=== PATIENT | male | born 1980 | race Caucasian/White ===

== ENCOUNTER 2024-01-31 08:51 | Emergency (ER) | payer OTHER ==
[~2024-01-31] VITALS: Ht 170.2 cm; Wt 90.7 kg
[2024-01-31] MEDS ORDERED: NS 1,000 ML IV SCH (08:55)
[2024-01-31 09:04] LABS: BASOPHILS ABSOLUTE AUTO 0.07 K/mm3 (0.00-0.23); BASOPHILS PERCENT AUTO 1 % (0-2); EOSINOPHILS ABSOLUTE AUTO 0.21 K/mm3 (0.00-0.68); EOSINOPHILS PERCENT AUTO 3 % (0-6); Hematocrit 36.8 % (37.0-53.0); Hemoglobin 12.9 g/dL (13.5-17.5); IMMATURE GRAN ABSOLUTE AUTO 0.02 K/mm3 (0.00-0.10); IMMATURE GRAN PERCENT AUTO 0 % (0-1); LYMPHOCYTES ABSOLUTE AUTO 0.82 K/mm3 (0.84-5.20); LYMPHOCYTES PERCENT AUTO 13 % (21-46); MONOCYTES ABSOLUTE AUTO 0.53 K/mm3 (0.16-1.47); MONOCYTES PERCENT AUTO 8 % (4-13); Mean Corpuscular HGB 35.1 pg (26.0-34.0); Mean Corpuscular HGB Conc 35.1 g/dL (31.5-36.5); Mean Corpuscular Volume 100 fL (80-100); Mean Platelet Volume 12.3 fL (9.1-12.4); NEUTROPHILS ABSOLUTE AUTO 4.67 K/mm3 (1.96-9.15); NEUTROPHILS PERCENT AUTO 74 % (41-73); Platelet Count 143 K/mm3 (150-400); RDW Coefficient Variation 14.7 % (11.7-14.2); RDW Standard Deviation 54.6 fL (35.1-46.3); Red Blood Cell Count 3.67 M/mm3 (4.30-5.90); White Blood Cell Count 6.32 K/mm3 (4.00-11.30)
[2024-01-31] MEDS ORDERED: NICOTINE LOZENGE2 MG MM ×2 (09:51)
[2024-01-31] MEDS ORDERED: MELATONIN5 M1 PO ×2 (09:51)
[2024-01-31] MEDS ORDERED: METO25 PO ×2 (09:51)
[2024-01-31] MEDS ORDERED: GABA300 PO ×2 (09:51)
[2024-01-31] MEDS ORDERED: B-1100 M2 PO ×2 (09:52)
[2024-01-31] MEDS ORDERED: CHLO25 PO ×2 (09:52)
[2024-01-31 09:55] LABS: Albumin, Blood 2.8 g/dL (3.4-5.0); Albumin/Globulin Ratio 0.6 (0.8-1.8); Bilirubin, Total 3.1 mg/dL (0.1-1.0); Bun/Creatinine Ratio 17.3 (12.0-20.0); Calcium, Blood 9.2 mg/dL (8.5-10.1); Creatinine, Blood 0.58 mg/dL (0.60-1.20); Globulin, Blood 4.5 g/dL (2.2-4.0); Potassium, Blood 4.3 mmol/L (3.5-5.5); Total Protein, Blood 7.3 g/dL (6.4-8.2)
[2024-01-31] MEDS ORDERED: ChlordiazePOXIDE 25 MG Cap PO ONE ×2 (10:35→12:20)
[2024-01-31] MEDS ORDERED: CloNIDine 0.1 MG Tab PO ONE (11:40)
== END 2024-01-31 13:00 ==
LOC: ER 08:51
PROVIDERS: Emergency Medicine
DX: F10.231 Alcohol dependence with withdrawal delirium (principal); E86.0 Dehydration; I10 Essential (primary) hypertension; Z79.899 Other long term (current) drug therapy
CPT/HCPCS: 80053; 85025; 93005; 93010; 96360; 99285-25; A9270; J7030

== ENCOUNTER 2024-01-31 16:10 | Inpatient (IN) | payer OTHER ==
[~2024-01-31] VITALS: Ht 177.8 cm; Wt 88.1 kg
[~2024-01-31 16:10] MED LIST: B-1100 M2 PO; CHLO25 PO; GABA300 PO; MELATONIN5 M1 PO; METO25 PO; NICOTINE LOZENGE2 MG MM
[2024-01-31] MEDS ORDERED: ChlordiazePOXIDE 25 MG Cap PO PRN ×2 (18:30)
[2024-01-31] MEDS ORDERED: Metoclopramide HCl 5MG / ML 2ML Vial IV PRN (18:30)
[2024-01-31] MEDS ORDERED: Lactated Ringer's 1,000 ML IV SCH (18:30)
[2024-01-31] MEDS ORDERED: LORazepam 2 MG/ML 1ML Injection IV PRN ×2 (18:30)
[2024-01-31] MEDS ORDERED: Ondansetron HCl 2 MG / ML 2ML Vial IV PRN (18:35)
[2024-01-31] MEDS ORDERED: Folic Acid 1 MG in NS 50 ML IV SCH (19:00)
[2024-01-31] MEDS ORDERED: Thiamine HCl 100 MG in NS 50 ML IV SCH (19:00)
[2024-01-31 19:25] LABS: Albumin, Blood 2.9 g/dL (3.4-5.0); Albumin/Globulin Ratio 0.6 (0.8-1.8); Bilirubin, Total 2.8 mg/dL (0.1-1.0); Calcium, Blood 9.2 mg/dL (8.5-10.1); Creatinine, Blood 0.6 mg/dL (0.60-1.20); Globulin, Blood 4.7 g/dL (2.2-4.0); Potassium, Blood 4.5 mmol/L (3.5-5.5); Total Protein, Blood 7.6 g/dL (6.4-8.2)
[2024-01-31] MEDS ORDERED: LORazepam 2 MG/ML 1ML Injection ONE ×2 (21:06→22:17)
[2024-01-31 22:51] VITALS: BP 129/86
[2024-01-31] MEDS ORDERED: Lactulose 20 GM/30 ML UDC PO ONE (23:00)
--- NOTE | 2024-01-31 23:56 | NUR ---
TRANSFER TO PCU PT ARRIVED TO PCU AT APPROXIMATELY 2045. PT SLID TO HOSPITAL BED. VSS, AFEBRILE. PT WAS SLEEPING UPON ARRIVAL, BUT SHORTLY AFTER BECAME RESTLESS AND WAS HALLUCINATING. CIWA OF 24 UPON ARRIVAL. MEDICATED WITH ATIVAN PER EMAR. PT NOW SLEEPING, BREATHING EVEN AND UNLABORED.
[2024-02-01 03:08] VITALS: BP 130/83
[2024-02-01 03:49] LABS: U Amphetamine Screen Not Detected; U Barbituate Screen Not Detected; U Benzodiazapine Screen DETECTED; U Buprenorphine Screen Not Detected; U Cannabinoids Screen Not Detected; U Cocaine Screen Not Detected; U Methadone Screen Not Detected; U Methamphetamine Screen Not Detected; U Opiates Screen Not Detected; U Oxycodone Screen Not Detected; U Phencyclidine Screen Not Detected
[2024-02-01 04:36] LABS: Albumin, Blood 2.9 g/dL (3.4-5.0); Albumin/Globulin Ratio 0.7 (0.8-1.8); Bun/Creatinine Ratio 18.5 (12.0-20.0); Calcium, Blood 8.8 mg/dL (8.5-10.1); Creatinine, Blood 0.54 mg/dL (0.60-1.20); Globulin, Blood 4.4 g/dL (2.2-4.0); Magnesium, Blood 1.6 mg/dL (1.6-2.4); Potassium, Blood 3.6 mmol/L (3.5-5.5); Total Protein, Blood 7.3 g/dL (6.4-8.2)
--- NOTE | 2024-02-01 05:03 | NUR ---
SHIFT SUMMARY PT A&O X2-3, UNABLE TO MAKE NEEDS KNOWN APPROPRIATELY. NO ACUTE CHANGES SINCE ASSUMPTION OF CARE. PT IS IMPULSIVE, BED ALARM ON, SITTER IN ROOM. CIWA SCORE BETWEEN 6-24, MEDICATED PER EMAR, ALTHOUGH PT IS CURRENTLY MAXED ON LIBRIUM, ATIVAN HAS SEEMED TO KEEP SYMPTOMS UNDER CONTROL THIS SHIFT. LR RUNNING AT 125 ML/HR. LUNGS CLEAR, HR IS SR 70'S. PT DENIES SOB OR CP. PT IS QUITE WEAK AND SLOW TO FOLLOW COMMANDS, USES URINAL IN BED WITH ASSISTANCE. PT IS NOW SLEEPING, CALL LIGHT WITHIN REACH, BED IN LOWEST POSITION, BREATHING EVEN AND UNLABORED.
[2024-02-01 08:09] VITALS: BP 154/97
[2024-02-01 08:11] LABS: International Normalized Ratio 1.28; Prothrombin Time Results 13.4 Sec (9.7-11.5)
[2024-02-01] MEDS ORDERED: Enoxaparin 40 MG/0.4 ML SYR SC SCH (09:00)
[2024-02-01] MEDS ORDERED: Lactulose 20 GM/30 ML UDC PO SCH (09:00)
[2024-02-01] MEDS ORDERED: Multivitamins 1 Tab PO SCH (09:00)
[2024-02-01 12:41] VITALS: BP 140/87
[2024-02-01 16:58] VITALS: BP 148/112
--- NOTE | 2024-02-01 18:20 | NUR ---
SHIFT SUMMARY: PT ALERT, ORIENTED TO SELF, MONTH/YEAR, SITUATION. CIWAs SCORED AND PT MEDICATED PRN, NO HALLUCINATIONS NOTED THIS SHIFT BUT PT NOTED TO HAVE TREMORS, ANXIETY, AGITATION. PT HAS BEEN COOPERATIVE W/CARE AND ABLE TO MAKE NEEDS KNOWN, 1:1 OBSERVATION DC'd. PT DENIES SOB AND CP, O2 SATS >93% ON RA, SR ON MONITOR W/RATE 70s-80s. PT W/3 LOOSE STOOLS THIS SHIFT, CONTINENT OF BOWEL AND BLADDER. FLUIDS INFUSING PER ORDERS. AT THIS TIME, PT IS RESTING IN BEDSIDE RECLINER W/CALL LIGHT IN REACH.
[2024-02-01 21:15] VITALS: BP 157/116
--- NOTE | 2024-02-01 22:49 | NUR ---
UPDATE PT BEGAN EXPERIENCING SEVERE HALLUCINATIONS AND BEGAN TO RIP HIS IV TUBING, UNDRESS, AND GRAB HIS BELONGINGS. HE THEN STARTED RUNNING DOWN THE DC EXPRESSING SEVERE HALLUCINATIONS AND THAT HE WAS FEARFUL. SECURITY WAS CALLED, , AND NURSE RULING MACHINE SET UP OPERATOR NOTIFIED PROMPTLY. PT THEN LEFT CAMPUS FOLLOWED BY SECURITY. PT WAS FOUND NEAR THE SOUTH ENTRANCE IN THE PARKING LOT. PT VOLUNTARILY ESCORTED BACK TO U 9 BY SECURITY. PT ARRIVED BACK TO U AT APPROXIMATELY 22:30. NEW IV INSERTED BY ELECTROLYTIC DE SCALER, PT CLEANED UP. HE HAS A SKIN TEAR TO HIS LEFT FOOT AND LEFT FOREARM. CLEANED AND DRESSED. PT MEDICATED PER EMAR. PT IS NOW RESTING IN BED, SITTER IN ROOM.
[2024-02-01 23:03] VITALS: BP 144/88
[2024-02-02] VITALS (55 sets, daily range): BP systolic 99–172; BP diastolic 62–116
--- NOTE | 2024-02-02 01:23 | NUR ---
REPORT GIVEN TO ERMA MADDEN AND PT TRANSFERRED TO ICU 3.
[2024-02-02] MEDS ORDERED: NS 250 ML IV PRN (02:25)
[2024-02-02 03:35] LABS: BASOPHILS ABSOLUTE AUTO 0.06 K/mm3 (0.00-0.23); BASOPHILS PERCENT AUTO 1 % (0-2); EOSINOPHILS ABSOLUTE AUTO 0.13 K/mm3 (0.00-0.68); EOSINOPHILS PERCENT AUTO 2 % (0-6); Hematocrit 37.6 % (37.0-53.0); Hemoglobin 13.6 g/dL (13.5-17.5); IMMATURE GRAN ABSOLUTE AUTO 0.01 K/mm3 (0.00-0.10); IMMATURE GRAN PERCENT AUTO 0 % (0-1); LYMPHOCYTES ABSOLUTE AUTO 0.89 K/mm3 (0.84-5.20); LYMPHOCYTES PERCENT AUTO 14 % (21-46); MONOCYTES ABSOLUTE AUTO 0.84 K/mm3 (0.16-1.47); MONOCYTES PERCENT AUTO 13 % (4-13); Mean Corpuscular HGB 35.8 pg (26.0-34.0); Mean Corpuscular HGB Conc 36.2 g/dL (31.5-36.5); Mean Corpuscular Volume 99 fL (80-100); Mean Platelet Volume 11.9 fL (9.1-12.4); NEUTROPHILS ABSOLUTE AUTO 4.47 K/mm3 (1.96-9.15); NEUTROPHILS PERCENT AUTO 70 % (41-73); Platelet Count 91 K/mm3 (150-400); RDW Coefficient Variation 14.3 % (11.7-14.2); RDW Standard Deviation 51.8 fL (35.1-46.3)
[2024-02-02 03:54] LABS: Albumin/Globulin Ratio 0.7 (0.8-1.8); Bilirubin, Total 2.7 mg/dL (0.1-1.0); Bun/Creatinine Ratio 10.4 (12.0-20.0); Calcium, Blood 8.7 mg/dL (8.5-10.1); Creatinine, Blood 0.58 mg/dL (0.60-1.20); Globulin, Blood 4.6 g/dL (2.2-4.0); Potassium, Blood 3.5 mmol/L (3.5-5.5); Total Protein, Blood 7.6 g/dL (6.4-8.2)
[2024-02-02] MEDS ORDERED: OLANZapine 10 MG Vial IM ONE (03:55)
--- NOTE | 2024-02-02 03:58 | NUR ---
ARRIVAL TO ICU PT A/O X 3. STATES HES IN THE ICU IN [facility]. STATES ITS January. FOLLOWING DIRECTIONS BUT IMPULSIVE AND PULLING AT LINES. 1:1 SITTER AT BEDSIDE. [address] D/T PREVIOUS ELOPEMENT. LABILE, COOPERITIVE AT TIMES AND OTHERS HALLUCINATING, THREATENING TO HIT STAFF AND RAISING FISTS. MINIMALLY RE-DIRECTABLE. VSS. SR RATE 70-90'S. USES URINAL IN BED TO VOID. CALL LIGHT IN REACH.
--- NOTE | 2024-02-02 08:57 | NUR ---
ASSUMED CARE BEDSIDE REPORT FROM [place] RITCHIE AT 0700. PT APPEARS TO BE SLEEPING IN BED. PRECEDEX GTT INFUSING, TITRATING DOWN. RASS -3. PT RESPONSES TO VERBAL STIMULI, DOES NOT FOLLOW DIRECTIONS. SPEECH GARBLED AND INCOHERANT. UNABLE TO TAKE PO MEDS SAFELY. LUNGS COARSE c WHEEZES THROUGHOUT. OCCASIONAL NON PRODUCTIVE COUGH. SR, RATE 80'S. HTN NOTED. LR GTT INFUSING. PIV X 3. SITTER AT BEDSIDE FOR SAFETY. WILL CONTINUE PLAN OF CARE.
--- NOTE | 2024-02-02 17:14 | NUR ---
SHIFT SUMMARY NO ACUTE CHANGES THIS SHIFT. REMAINS ON PRECEDEX GTT. ATTEMPTED TO TITRATE DOWN SEVERAL TIMES THIS SHIFT. PT BECAME AGITATED, RESTLESS AND DIFFICULT TO REDIRECT. CIWA RANGE FROM 8-19, PRN GIVEN. PT A&OX 1 ONLY. OCCASIONALLY FOLLOWS SIMPLE DIRECTIONS. MILVIA. SITTER FOR SAFETY. LUNGS COARSE THROUGHOUT c WHEEZES. O2 VIA NC AT 5L. PT UNABLE TO TAKE PO MEDS D/T ASPIRATION RISK. ABD DISTENDED, SOFT, NON TENDER, BT X 4. ATTENDS IN PLACE. PT HAS REQUESTED TO USE URINAL TWICE, TWO INCONTINENT VOIDS. ORAL CARE PERFORMED SEVERAL TIMES THIS SHIFT. WILL CONTINUE PLAN OF CARE UNTIL REPORT TO ONCOMING NURSE.
--- NOTE | 2024-02-02 19:00 | NUR ---
ASSUMPTION OF CARE BEDSIDE SHIFT REPORT RECEIVED FROM DAYSHIFT RN. PT RESTING IN BED, RESPONDS TO VERBAL STIMULI. PT ORIENTED TO SELF, MUMBLED SPEECH THAT IS HARD TO UNDERSTAND. PT MAKING NONSENSICLE STATEMENTS. PT FOLLOWS DIRECTION WHEN PROMPTED SUCH SQUEEZING HANDS AND WIGGLING TOES. HR 80-90'S SINUS, MAP >65. AUDIBLE COURSE/WET SOUNDING RESPIRATIONS HEARD FROM PT DOOR. LUNG SOUNDS COARSE THROUGHOUT ALL HOLLY. PT HAS WEAK COUGH, RESPIRATORY RATE IN THE 30-40'S. PT ON 5LPM VIA NC OXYGEN SATURATION >90%. ABDOMEN ROUND, BOWEL TONES HYPOACTIVE. PT USES URINAL WITH ASSISTANCE TO VOID, ATTENDS IN PLACE. PIV IN PLACE TO RFA, RIGHT WRIST AND LAC. PRECEDEX INFUSING AT 0.7MCG/KG/HR. LR INFUSING AT 150MLS/HR. BED IN LOWEST POSITION, 1:1 SITTER AT THE PT BEDSIDE. CALL LIGHT WIHTIN REACH, CARE CONTINUES.
--- NOTE | 2024-02-02 20:14 | NUR ---
PT UPDATE PT BECAME VERY AGGITATED, ATTEMPTING TO CRAWL OUT OF BED, YELLING OUT, NOT REDIRECTABLE. OXYGEN SATURATION DROPPED TO 84% WHILE ON NC. PT REPOSITIONED AND BOOSTED IN BED, INSTRUCTED PT TO TAKE DEEP BREATHS THROUGH HIS NOSE. CALL PLACED TO HOSPITALIST, CHEST XRAY ORDERED AND COMPLETED, LR PLACED ON HOLD, PT PLACED ON 5LPM O2 VIA HIGH FLOW NC QUICKLY TITRATED UP TO 7LPM. PT RESTING COMFORTABLY IN BED AT THIS TIME, OXYGEN SATURATION 95%. 1:1 SITTER REMAINS AT THE BEDSIDE. CARE CONTINUES.
[2024-02-02 20:22] LABS: Bun/Creatinine Ratio 14.5 (12.0-20.0); Calcium, Blood 8.7 mg/dL (8.5-10.1); Creatinine, Blood 0.41 mg/dL (0.60-1.20)
[2024-02-02 20:44] LABS: Base Excess Venous 0.8 mmol/L; Bicarbonate Venous 25.4 mmol/L (24.0-30.0); PCO2 Venous 34.5 mmHg (38-42); pH Blood Venous 7.46 (7.34-7.37)
[2024-02-02] MEDS ORDERED: Furosemide 10 MG/ML 4ML Vial IV ONE (20:50)
--- NOTE | 2024-02-02 20:55 | NUR ---
PT UPDATE RT AND HOSPITALIST TO BEDSIDE. PT WITHOUT GAG WHEN SUCTIONED BY RT. PT WAKING UP WITH AGGRESIVE STIMULATION. PRECEDEX PLACED ON STANDBY AT THIS TIME. CARE CONTINUES.
[2024-02-02 21:26] LABS: Source, Urine Foley catheter
[2024-02-02 21:29] LABS: Appearance, Urine Clear (Clear); Bilirubin, Urine Neg (Neg); Blood, Urine Neg (Neg); Color, Urine Yellow (P-Yellow); Glucose Qualitative, Urine Neg (Neg); Ketones, Urine Neg (Neg); Leukocyte Esterase, Urine Neg (Neg); Nitrite, Urine Neg (Neg); Protein, Urine Neg (Neg); Specific Gravity, Urine 1.015 (1.003-1.022); Urobilinogen, Urine NORM (Normal)
[2024-02-03] VITALS (41 sets, daily range): BP systolic 95–153; BP diastolic 54–128
[2024-02-03 03:36] LABS: BASOPHILS ABSOLUTE AUTO 0.09 K/mm3 (0.00-0.23); BASOPHILS PERCENT AUTO 1 % (0-2); EOSINOPHILS ABSOLUTE AUTO 0.09 K/mm3 (0.00-0.68); EOSINOPHILS PERCENT AUTO 1 % (0-6); Hematocrit 38.6 % (37.0-53.0); Hemoglobin 13.5 g/dL (13.5-17.5); IMMATURE GRAN ABSOLUTE AUTO 0.03 K/mm3 (0.00-0.10); IMMATURE GRAN PERCENT AUTO 0 % (0-1); LYMPHOCYTES ABSOLUTE AUTO 1.07 K/mm3 (0.84-5.20); LYMPHOCYTES PERCENT AUTO 16 % (21-46); MONOCYTES PERCENT AUTO 13 % (4-13); Mean Corpuscular HGB 35.2 pg (26.0-34.0); Mean Corpuscular Volume 101 fL (80-100); Mean Platelet Volume 11.8 fL (9.1-12.4); NEUTROPHILS ABSOLUTE AUTO 4.66 K/mm3 (1.96-9.15); NEUTROPHILS PERCENT AUTO 68 % (41-73); Platelet Count 98 K/mm3 (150-400); RDW Coefficient Variation 14.2 % (11.7-14.2); RDW Standard Deviation 52.5 fL (35.1-46.3); Red Blood Cell Count 3.83 M/mm3 (4.30-5.90); White Blood Cell Count 6.84 K/mm3 (4.00-11.30)
[2024-02-03 03:55] LABS: Albumin, Blood 2.7 g/dL (3.4-5.0); Albumin/Globulin Ratio 0.6 (0.8-1.8); Bun/Creatinine Ratio 17.9 (12.0-20.0); Calcium, Blood 8.6 mg/dL (8.5-10.1); Creatinine, Blood 0.56 mg/dL (0.60-1.20); Globulin, Blood 4.5 g/dL (2.2-4.0); Potassium, Blood 3.7 mmol/L (3.5-5.5); Total Protein, Blood 7.2 g/dL (6.4-8.2)
[2024-02-03] MEDS ORDERED: Furosemide 10 MG/ML 4ML Vial IV ONE (04:55)
--- NOTE | 2024-02-03 06:10 | NUR ---
SHIFT SUMMARY PT CONTINUES TO REST IN BED, SLEEPING BUT AROUSABLE. PT ANSWERS MOST QUESTIONS APPROPRIATELY AND FOLLOWS DIRECTION WHEN PROMPTED. PT MAKES NONSENSICLE STATEMENTS, ABLE TO STATE NAME , AND OCCASIONALLY TOWN. 1:1 SITTER AT THE BEDSIDE, PRECEDEX REMAINS ON SB. HR 70-90'S SINUS, MAP >65. LUNG SOUNDS COARSE THROUGHOUT, GREATLY IMPROVED FROM BEGINNING OF SHIFT. PT IS ON 10L HFNC, OXYGEN SATURATION >90%. ABDOMEN ROUND, BOWEL TONES HYPOACTIVE. TEMP GARCIA IN PLACE PATENT DRAINING TO GRAVITY. PIV IN PLACE TO RIGHT WRIST AND LAC SL. BED IN LOWEST POSITION, CALL LIGHT WITHIN REACH, CARE CONTINUES.
[2024-02-03] MEDS ORDERED: Melatonin 1 MG Tablet PO PRN (07:40)
[2024-02-03] MEDS ORDERED: Nicotine 14 MG PATCH TOP PRN (07:40)
--- NOTE | 2024-02-03 08:15 | NUR ---
SHIFT ASSESSMENT BEDSIDE RECEIVED FROM [facility] NURSE. PT RESTING COMFORTABLY IN BED. AWAKENS EASILY TO VERBAL STIMULI. A&OX3, UNSURE OF DATE BUT RECALLS EVENTS LEADING UP TO THIS ADMIT. CALM AND COOPERATIVE WITH CARE. CIWA <6. REMAINS OFF OF PRECEDEX, HAS NOT RECEIVED ANY PRN MEDS FOR ETOH W/D. INITIALLY ON HIFLOW NC @ 8-10LPM, TITRATED DOWN TO 2LPM. NO S/S OF RESP DISTRESS. TOLERATING SMALL SIPS OF WATER, WILL SLOWLY ADVANCE DIET. GARCIA CATH REMAINS IN PLACE, DRAINING LIGHT PINK URINE. SITTER REMAINS OUTSIDE OF ROOM.
[2024-02-03] MEDS ORDERED: Ampicillin Sod/Sulbactam Sod 3 GM in NS 100 ML IV SCH (12:00)
[2024-02-03] MEDS ORDERED: Nicotine Polacrilex 2 MG Gum PO PRN (15:45)
--- NOTE | 2024-02-03 17:54 | NUR ---
SHIFT SUMMARY HOLD DC'D PT ALERT AND ORIENTED, REMAINS CALM AND COOPERATIVE WITH STAFF. HAVING BRIEF MOMENTS OF MILD CONFUSION BUT REORIENTS BY HIMSELF. CIWA <8 FOR MOST OF THE DAY. THIS EVENING PT ADMITTED TO SEEING HIS HORTICULTURAL WORKER IN BED THAT WASN'T THERE, MEDICATED c ONE DOSE OF LIBRIUM. PT AMBULATING WITH SBA, TOLERATING PO INTAKE WELL. 1 BM TODAY. PT PCU STATUS NOW
--- NOTE | 2024-02-03 20:31 | NUR ---
ASSUMPTION OF CARE ASSUMED CARE OF PATIENT AT 1900, BEDSIDE SHIFT REPORT RECEIVED FROM YUE RN. PT UP TO BEDSISE COMMODE WITH ASSISTANCE, SHAKY WHILE STANDING. PT ANSWERS QUESTIONS APPROPRIATELY, FOLLOWS DIRECTION WHEN PROMPTED AND IS ABLE TO MAKE HIS NEEDS KNOWN. PT MOVES ALL EXTREMITIES EQUALLY BILATERALLY. PT DENIES VISUAL/AUDITORY HALLUCINATIONS AT TIME OF ASESSMENT, CIWA 6 ON ASSESSMENT. HR 90'S SINUS, MAP >65. PT DENIES CP OR PRESSURE. PT ON RA, OXYGEN SATURATION >90% PT DENIES SOB/DIFFICULTY BREATHING. ABDOMEN ROUND, BOWEL TONES HYPERACTIVE, PT DENIES N/V. PT UP TO BEDSIDE COMMODE WITH ASSISTANCE TO VOID. PIV IN PLACE TO RIGHT WIST SL. PIV IN PLACE TO LAC INFUSING NS TKO. BED IN LOWEST POSTION, CALL LIGHT WITHIN REACH, CARE CONTINUES.
[2024-02-03] MEDS ORDERED: Famotidine 20 MG Tab PO SCH (22:25)
[2024-02-03] MEDS ORDERED: Calcium Carbonate 500 MG Tab Chew PO PRN (22:25)
[2024-02-04] VITALS (16 sets, daily range): BP systolic 120–173; BP diastolic 75–103
--- NOTE | 2024-02-04 05:54 | NUR ---
SHIFT SUMMARY NO ACUTE CHANGES THIS SHIFT. PT CONTINUES TO REST IN BED, ORIENTED X 4. PT ANSWERS QUESTIONS APPROPRIATELY, FOLLOWS DIRECTION WHEN PROMPTED AND IS ABLE TO MAKE HIS NEEDS KNOWN. PT MOVES EXTREMITIES EQUALLY BILATERALLY. PT IS WEAK AND SHAKY WHILE AMBULATING. CIWA 2-6 THIS SHIFT. HR 90'S SINUS, MAP >65, DENIES CP/PRESSURE. PT ON RA, OXYGEN SATURATION >90%, PT DENIES SOB/DIFFICULTY BREATHING. ABDOMEN ROUND, NONTENDER, BOWEL TONES HYPERACTIVE. PT HAS HAD MULTIPLE LIQUID BOWEL MOVEMENTS THIS SHIFT, AMBULATES WITH ASSISTANCE TO BEDSIDE COMMODE TO VOID. PIV IN PLACE TO RIGHT WRIST SL, PIV IN PLACE TO LAC INFUSING NS TKO. BED IN LOWEST POSITION, CALL LIGHT WITHIN REACH, CARE CONTINUES.
[2024-02-04 07:05] LABS: BASOPHILS ABSOLUTE AUTO 0.08 K/mm3 (0.00-0.23); BASOPHILS PERCENT AUTO 1 % (0-2); EOSINOPHILS ABSOLUTE AUTO 0.11 K/mm3 (0.00-0.68); EOSINOPHILS PERCENT AUTO 2 % (0-6); Hematocrit 37.9 % (37.0-53.0); Hemoglobin 13.4 g/dL (13.5-17.5); IMMATURE GRAN ABSOLUTE AUTO 0.02 K/mm3 (0.00-0.10); IMMATURE GRAN PERCENT AUTO 0 % (0-1); LYMPHOCYTES ABSOLUTE AUTO 0.97 K/mm3 (0.84-5.20); LYMPHOCYTES PERCENT AUTO 16 % (21-46); MONOCYTES ABSOLUTE AUTO 1.02 K/mm3 (0.16-1.47); MONOCYTES PERCENT AUTO 17 % (4-13); Mean Corpuscular HGB 35.4 pg (26.0-34.0); Mean Corpuscular HGB Conc 35.4 g/dL (31.5-36.5); Mean Corpuscular Volume 100 fL (80-100); Mean Platelet Volume 11.4 fL (9.1-12.4); NEUTROPHILS ABSOLUTE AUTO 3.94 K/mm3 (1.96-9.15); NEUTROPHILS PERCENT AUTO 64 % (41-73); Platelet Count 120 K/mm3 (150-400); RDW Coefficient Variation 14.6 % (11.7-14.2); RDW Standard Deviation 53.4 fL (35.1-46.3); Red Blood Cell Count 3.79 M/mm3 (4.30-5.90); White Blood Cell Count 6.14 K/mm3 (4.00-11.30)
[2024-02-04 07:26] LABS: Albumin, Blood 2.7 g/dL (3.4-5.0); Albumin/Globulin Ratio 0.6 (0.8-1.8); Bilirubin, Total 2.2 mg/dL (0.1-1.0); Bun/Creatinine Ratio 17.9 (12.0-20.0); Calcium, Blood 8.5 mg/dL (8.5-10.1); Creatinine, Blood 0.62 mg/dL (0.60-1.20); Globulin, Blood 4.4 g/dL (2.2-4.0); Potassium, Blood 2.9 mmol/L (3.5-5.5); Total Protein, Blood 7.1 g/dL (6.4-8.2)
[2024-02-04] MEDS ORDERED: Potassium Phosphate Dibasic 30 MM in Dextrose 5% 500 ML IV STA (07:38)
[2024-02-04] MEDS ORDERED: Potassium Chloride 20 MEQ TabCR PO ONE (08:00)
[2024-02-04 09:40] LABS: HEPATITIS A ANTIBODY, IGM Negative (Negative); HEPATITIS B CORE ANTIBODY, IGM Negative (Negative); HEPATITIS B SURFACE ANTIGEN Negative (Negative); HEPATITIS C AB CIA INTERP Negative (Negative); HEPATITIS C ANTIBODY CIA INDEX <0.02 IV
--- NOTE | 2024-02-04 09:40 | NUR ---
AM NOTE... ASSUMED CARE OF PT AT 0700, PT IS A&Ox4, PT C/O OF FEELING WEAK AND "SHAKEY." PT'S VS STABLE AT THIS TIME HE IS IN SR/ST IN THE 90'S TO 100'S. PT'S TEMP IS 99.4. L/S CLEAR T/O ON RA. BT PRESENT AND HYPERACTIVE, ABD HAS MODERATE DISTENTION IS SLIGHTLY FIRM TO PALPATION. PT IS C/O OF RUQ PAIN THAT INCREASES WITH PALPATION. WILL CONTINUE TO MONITOR.
--- NOTE | 2024-02-04 20:18 | NUR ---
DAY SHIFT SUMMARY: PATIENT TRANSFER FROM ICU THIS SHIFT. NO ACUTE CHANGES TO REPORT THIS SHIFT. PT A&O X3-4; OCCASIONALLY FORGETFUL; CALM AND COOPERATIVE WITH CARE. NO C/O PAIN SINCE ARRIVAL ON MEDICAL. PT UP TO BATHROOM WITH SBA; PT HAS SLOW, WEAK GAIT. MULTIPLE LOOSE STOOLS THIS SHIFT; IMPROVING SINCE LAST SHIFT. CIWA SCORES 0-2 THIS SHIFT; STABLE WITHDRAWAL. IV ABX & VITAMINS CONTINUING. REPORT GIVEN TO ONCOMING RN.
[2024-02-04] MEDS ORDERED: Lactobacil 2-S.Thermo-Bifido 1 1 Cap PO SCH (21:00)
--- NOTE | 2024-02-05 01:28 | NUR ---
ENTERED PT'S ROOM TO DISCONNECT HIM FROM THE IV. FOUND BOTH OF PT'S IV'S SITTING ON THE BEDSIDE TABLE. PT FOUND IN BATHROOM. WHEN QUERIED ABOUT THE IVs, PT STATED THAT HE TOOK THEM OUT TO SHOWER. EDUCATED PT THAT IVs STAY IN FOR SHOWERS, THEY JUST NEED TO BE PROTECTED FROM THE WATER. PT STATED THAT HE ALERTED STAFF BY STATING THAT HIS IV WAS NOT WORKING, BUT DID NOT USE THE CALL LIGHT. PT STATED THAT HE DID NOT KNOW WHAT A CALL LIGHT WAS. EDUCATED PT FINANCE CONTROLLER LIGHT AND IT'S USE AND REQUESTED PT TO UTILIZE THE LIGHT AND WAIT FOR STAFF TO PRESENT TO THE ROOM BEFORE TOUCHING ANY MEDICAL EQUIPMENT. PT DID NOT VERBALIZE PLANNED COOPERATION.
[2024-02-05 03:59] LABS: Albumin, Blood 3.2 g/dL (3.4-5.0); Albumin/Globulin Ratio 0.6 (0.8-1.8); Bilirubin, Total 2.8 mg/dL (0.1-1.0); Bun/Creatinine Ratio 14.9 (12.0-20.0); Calcium, Blood 9.1 mg/dL (8.5-10.1); Creatinine, Blood 0.67 mg/dL (0.60-1.20); Total Protein, Blood 8.2 g/dL (6.4-8.2)
--- NOTE | 2024-02-05 06:37 | NUR ---
SHIFT SUMMARY: JAIME IS A&OX4 WITH INTERMITTENT CONFUSION, EASILY REDIRECTABLE. PT CALLED 911 THIS AM STATING THAT STAFF WERE HOLDING HIM DOWN AND CUTTING HIM. DISCUSSED WITH PT AT BEDSIDE, PT POINTED TO COBAN WRAPS ON LEFT AND RIGHT ARMS. REMOVED COBAN AND NO WOUNDS WERE FOUND. PT STATED THAT HE WAS UPSET THAT ONE OF THE NURSES "BARGED" INTO HIS ROOM WITHOUT KNOCKING. DISCUSSED APPROPRIATE PROBLEM SOLVING. PT IS INDEPENDENT IN THE ROOM AND LIKES TO WALK THE HALLWAYS. PT STATES THAT HE HAS A RIDE COMING AT ELEVEN. DISCUSSED THAT PT MAY OR MAY NOT HAVE DISCHARGE ORDERS BY THAT TIME AND RECOMMENDED PT DISCUSS WITH PERSON PROVIDING TRANSPORTATION THE BENEFIT OF REMAINING FLEXIBLE. IV TO L AC PATENT, IV ABX INFUSING CURRENTLY. HE IS TOLERATING PO INTAKE WELL AND ABLE TO MAKE HIS NEEDS KNOWN. HE IS SITTING UP IN THE BEDSIDE CHAIR. WILL GIVE REPORT TO DAY SHIFT RN.
[2024-02-05 07:20] VITALS: BP 158/91
--- NOTE | 2024-02-05 08:00 | NUR ---
0730- received report from previous shift rn, pt sitting up in chair, dressed in his own clothes, a/o x 4, pleasant/cooperative. CIWA of 1-2. answers questions appropriately 0800-pt walking in hallway; received call from charge entry clerk, pt has gotten on the elevator; kiln charger will notify downstairs admitting desk to speak with pt
[2024-02-05] MEDS ORDERED: AMOCLA875 PO ×2 (10:17)
[2024-02-05] MEDS ORDERED: 1/2 NS 250ml250 ML ×2 (10:17)
[2024-02-05] MEDS ORDERED: NICOTINE LOZENGE2 MG MM ×2 (10:18)
[2024-02-05] MEDS ORDERED: FOLI1 PO ×2 (10:18)
[2024-02-05] MEDS ORDERED: VISBIOME 112.51 EACH PO ×2 (10:19)
[2024-02-05] MEDS ORDERED: AMLO5 PO ×2 (10:19)
--- NOTE | 2024-02-05 12:06 | NUR ---
PROVIDED PT WITH DISCHARGE INSTRUCTIONS, PRINTED MATERIALS, PERIPHERAL IV REMOVED WNL. PT WISHED TO WALK TO THE WAITING AREA FOR HIS RIDE. PT TRANSFERRED HIS BELONGINGS ON HIS OWN. FAXED MEDICATIONS TO [facility].
== END 2024-02-05 10:40 | disposition home or self-care (01) | DRG 441 ==
LOC: ER 16:10 → PCU 18:25 → ICUE 02-02 01:31 → MEDS 02-04 10:56
PROVIDERS: Nurse Practitioner Acute Care; Student in an Organized Health Care Education/Training Program; ADMIT Internal Medicine
PROC: 0T9B70Z Drainage of Bladder with Drainage Device, Via Natural or Artificial Opening (ICD-10-PCS; principal; 2024-01-31)
DX: K76.82 Hepatic encephalopathy (principal); J69.0 Pneumonitis due to inhalation of food and vomit; J96.01 Acute respiratory failure with hypoxia; F10.231 Alcohol dependence with withdrawal delirium; K76.6 Portal hypertension; K72.10 Chronic hepatic failure without coma; K70.30 Alcoholic cirrhosis of liver without ascites; N28.1 Cyst of kidney, acquired; Z79.899 Other long term (current) drug therapy; Z71.41 Alcohol abuse counseling and surveillance of alcoholic
CPT/HCPCS: 36415; 51702; 71045; 74183; 76705; 80048; 80053; 80074; 81003; 82105; 82140; 82803; 83735; 83880; 84145; 85025; 85610; 85730; 93306; 97116; 97161; 99285; A9270; A9581; J0295; J1650; J1940; J2060; J3411; J7050; J7060; J7120

== ENCOUNTER 2025-06-22 12:32 | Emergency (ER) | payer OTHER ==
[~2025-06-22] VITALS: Ht 170.2 cm; Wt 88.5 kg
[~2025-06-22 12:32] MED LIST changes: +1/2 NS 250ml250 ML; +AMLO5 PO; +AMOCLA875 PO; +CATAPRES0.1 MG PO; +FOLI1 PO; +VISBIOME 112.51 EACH PO
[2025-06-22] MEDS ORDERED: LORazepam 2 MG/ML 1ML Injection IV ONE (13:05)
[2025-06-22 13:29] LABS: BASOPHILS ABSOLUTE AUTO 0.04 K/mm3 (0.00-0.23); BASOPHILS PERCENT AUTO 1 % (0-2); EOSINOPHILS ABSOLUTE AUTO 0.11 K/mm3 (0.00-0.68); EOSINOPHILS PERCENT AUTO 3 % (0-6); Hematocrit 40.5 % (37.0-53.0); Hemoglobin 14.3 g/dL (13.5-17.5); IMMATURE GRAN ABSOLUTE AUTO 0.02 K/mm3 (0.00-0.10); IMMATURE GRAN PERCENT AUTO 1 % (0-1); LYMPHOCYTES ABSOLUTE AUTO 0.60 K/mm3 (0.84-5.20); LYMPHOCYTES PERCENT AUTO 14 % (21-46); MONOCYTES ABSOLUTE AUTO 0.61 K/mm3 (0.16-1.47); MONOCYTES PERCENT AUTO 14 % (4-13); Mean Corpuscular HGB Conc 35.3 g/dL (31.5-36.5); Mean Corpuscular Volume 98 fL (80-100); NEUTROPHILS ABSOLUTE AUTO 3.03 K/mm3 (1.96-9.15); NEUTROPHILS PERCENT AUTO 69 % (41-73); NRBC ABSOLUTE 0.00 K/mm3 (0.00-0.02); NRBC Auto 0.0 /100 WBC (0.0-0.2); RDW Coefficient Variation 14.6 % (11.7-14.2); RDW Standard Deviation 53.1 fL (35.1-46.3)
[2025-06-22 13:34] LABS: Platelet Count 31 K/mm3 (150-400)
[2025-06-22 14:08] LABS: Alanine Aminotransfer (ALT/SGP 83 U/L (12-78); Albumin, Blood 3.6 g/dL (3.4-5.0); Albumin/Globulin Ratio 0.7 (0.8-1.8); Anion Gap 10 mmol/L (3-11); Aspartate Aminotrans (AST/SGOT 227 U/L (12-37); Bilirubin, Total 5.8 mg/dL (0.1-1.0); Blood Urea Nitrogen 10 mg/dL (8-24); CO2, Blood 24 mmol/L (21-32); Calcium, Blood 9.1 mg/dL (8.5-10.1); Chloride, Blood 103 mmol/L (98-108); Creatinine, Blood 0.58 mg/dL (0.60-1.20); Ethanol (Alcohol), Blood, Med <3 mg/dL; Globulin, Blood 5.1 g/dL (2.2-4.0); Glucose, Blood 104 mg/dL (70-99); Potassium, Blood 3.6 mmol/L (3.5-5.5); Sodium, Blood 133 mmol/L (136-145); Total Protein, Blood 8.7 g/dL (6.4-8.2)
== END 2025-06-22 15:45 | disposition home or self-care (01) ==
LOC: ER 12:32
PROVIDERS: Student in an Organized Health Care Education/Training Program
DX: F10.239 Alcohol dependence with withdrawal, unspecified (principal); I10 Essential (primary) hypertension; Y90.0 Blood alcohol level of less than 20 mg/100 ml; Z79.899 Other long term (current) drug therapy
CPT/HCPCS: 80053; 80320; 83690; 85025; 93005; 93010; 96374; 96375; 99285-25; J2060; J2560